=== PATIENT | male | born 1985 | race African-American/Black ===

== ENCOUNTER 2016-10-20 09:14 | Emergency (ER) | payer OTHER ==
[2016-10-20] MEDS ORDERED: BUPIVACAINE 0.5% PF 30 ML VIAL SUBQ STA ×2 (10:00→13:07)
[2016-10-20] MEDS ORDERED: BUPIVACAINE 0.25% PF 30 ML VIAL ONE ×2 (10:01→13:03)
[2016-10-20] MEDS ORDERED: oxyCOD/ACETAMIN 5 MG/325 MG TABLET PO STA (10:35)
[2016-10-20] MEDS ORDERED: oxyCOD/ACETAMIN 5 MG/325 MG TABLET PO ONE (10:47)
--- NOTE | 2016-10-20 11:05 | XRAY Preliminary Report ---
Exam: XR Finger(s) LT IMPRESSION: Comminuted fractures of the distal aspect of the third and fourth digit distal phalanges, with mild displacement of the fourth. [facility] SITE ID: [id number]
--- NOTE | 2016-10-20 11:07 | XRAY Report ---
EXAM: Right/Left 1st/2nd/3rd/4th/5th DIGIT RADIOGRAPHY EXAM DATE: 10/20/2016 10:57 AM. CLINICAL HISTORY: Crush injury. Slammed fingers in door a few hours ago. COMPARISON: None. TECHNIQUE: 3 views. FINDINGS: Bones: Comminuted fracture of the distal aspect of the third digit distal phalanx, without substantia l displacement. Mildly displaced, comminuted fracture of the distal aspect of the fourth distal phala nx. No intra-articular fractures demonstrated. A ring on the fourth digit limits the exam. Joints: Normal. No subluxations. Soft Tissues: Distal third and fourth digit soft tissue swelling. IMPRESSION: Comminuted fractures of the distal aspect of the third and fourth digit distal phalanges, with mild displacement of the fourth. ANASTASIYAA Referring Provider Line: [phone] SITE ID: [id number]
[2016-10-20] MEDS ORDERED: CEPHALEXIN 250 MG CAPSULE PO STA (11:12)
[2016-10-20] MEDS ORDERED: CEPHALEXIN 250 MG CAPSULE PO ONE (11:22)
--- NOTE | 2016-10-20 13:07 | ED Physician Documentation ---
History of Present Illness - Stated complaint Stated Complaint: FINGER LAC - Chief complaint Chief Complaint: Laceration - Additonal information Additional information: hx from [facility] health immunized [employer] [place] [employer] fingers slammed in door while at work lac pain swelling to left 3rd and 4th distal fingers near syncope from the pain Review of Systems Skin: reports: Laceration (s) Musculoskeletal: reports: Extremity pain PD PAST MEDICAL HISTORY - Present Medications Home Medications: Ambulatory Orders Medication Instructions Recorded Confirmed Cephalexin [Keflex] 500 mg PO Q6H #28 capsule 10/20/16 Ketorolac [Toradol] 10 mg PO Q6H PRN #30 tablet 10/20/16 - Allergies Allergies/Adverse Reactions: Allergies Allergy/AdvReac Type Severity Reaction Status Date / Time carbonation AdvReac Unknown Uncoded 10/20/16 09:23 PD ED PE NORMAL - Vitals Vital signs reviewed: Yes - Extremities Extremities: Other (L hand: proximal nails 3rd and 4th fingers have been avulsed from under prximal cuticle with associated lacs and severe pain , MSV intact, diff to assess strenght as underlying bone is fractured and pain is a limitation) Results - Vitals Vitals: Vital Signs - 24 hr 10/20/16 10/20/16 10/20/16 09:20 11:54 13:45 Temperature 36.9 C Heart Rate 57 L 60 68 Respiratory 16 14 14 Rate Blood Pressure 146/91 H 135/75 H 132/70 H O2 Saturation 96 98 100 10/20/16 14:34 Temperature Heart Rate 60 Respiratory 16 Rate Blood Pressure 127/69 O2 Saturation 97 Oxygen O2 Source Room air - Rads (name of study) fingers Radiology: See rad report (comminuted fractures 3rd and 4th distal phalanges 4th slightly displaced) Procedures - Laceration (location) 3rd and 4th L fingers Length in cm: 3 Wound type: Linear Neurovascular status: Sensory intact, Motor intact, Vascular intact Anesthesia: Marcaine 0.5% (15 cc), OTH (dig block multiple times) Wound Preparation: Irrigated copiously NS (> 1 L with paint flakes removed), Wound explored, To the base. No: FB identified Skin layer closure: Other (4th finger nail fracture just distal to matrix/ cuticle and tip of finger with no support 2/2 underlying open fx, lac extends on either side of nail as well, repaired lateral side with 2 int 4-0 suture and medial side with one 4-0 suture and then approximated the nail edges and pulled the finger back into full extension with two 4-0 sutures through the nail. #3rd finger with lac across very proximal nail , replaced back under proximal cuticle and sutured in place thus stabilizing the finger tip with 2 4-0 int sutures - pt tolaterated well after 3rd dig block. Xeroform, dressing and sturdy splints applied) Complexity: Intermediate PD MEDICAL DECISION MAKING - ED course ED course: ring removed called [facility] - on vacation for [address] Stiles who came to the ER to evaluate the pt and rec irrigation and repair in the ER with outpt ortho fup Departure - Departure Disposition: 01 Home, Self Care Clinical Impression: Fracture of finger, left, open Qualifiers: Encounter type: initial encounter Qualified Code(s): S62.609B - Fracture of unspecified phalanx of unspecified finger, initial encounter for open fracture Condition: Fair Instructions: ED Fx Finger Open Follow-Up: Vikram Stiles MD [Provider Admit Priv/Credential] - (Thursday or Thursday for follow up - you need to call the clinic to schedule) [facility] [Provider Group] Prescriptions: Cephalexin [Keflex] 500 mg PO Q6H #28 capsule Ketorolac [Toradol] 10 mg PO Q6H PRN #30 tablet PRN Reason: Pain Comments: You have two significant open finger fractures Close follow up with orthopedics to ensure that the extensor mechanism heals well (so you can straighten your fingers) and that the bone does not become infected. We called [facility] and apparently their orthopedic specialists are not available for a few weeks - so please follow ujp with our wildlife removal specialist Dr Stiles Wear the splints at all times - if you have follow up on Thursday just leave the dressing in place until then - otherwise gently remove the dressing, rinse the fingers with soapy water, then apply antibiotic ointment and a bandaid to each finger and replace the splint - be very careful not to bump the fingers while changing the dressings - the sutures are all that are holding the fingers in extension at this time Despite the precautions and care we took, these fingers are at risk for infection. Take the antibiotics as prescribed and return right away if any redness or drainage or fever develops Take two extra strength tylenol every 8 hours for the pain. If the pain is severe despite the tylenol, take the toradol as well. Keep the hand elevated as much as possible to decrease the swelling. Ice will help too And please get your blood pressure rechecked - understandably it was high today Forms: Activity restrictions Discharge Date/Time: 10/20/16 14:47
[2016-10-20] MEDS ORDERED: KETOROLAC 60 MG/2 ML VIAL IM STA (13:08)
[2016-10-20] MEDS ORDERED: KETOROLAC 60 MG/2 ML VIAL ONE (13:10)
[2016-10-20 14:35] VITALS: BP 127/69
== END 2016-10-20 14:47 | disposition home or self-care (01) ==
LOC: ED 09:14
DX: S62.663B Nondisplaced fracture of distal phalanx of left middle finger, initial encounter for open fracture (principal); S62.635B Displaced fracture of distal phalanx of left ring finger, initial encounter for open fracture; W23.1XXA Caught, crushed, jammed, or pinched between stationary objects, initial encounter; Y92.89 Other specified places as the place of occurrence of the external cause; Y99.0 Civilian activity done for income or pay
CPT/HCPCS: 12042; 73140; 96372; 99283; A9270